=== PATIENT | female | born 1990 | race Caucasian/White ===

== ENCOUNTER 2018-04-20 09:35 | Emergency (ER) | payer OTHER, SELFPAY ==
[2018-04-20 09:36] VITALS: BP 134/76; PULSE 89; RESP 16; TEMP 36.2; O2SAT 100; BMI 23.8
--- NOTE | 2018-04-20 09:55 | ED.DCSUM_ITS ---
- ER Visit Summary Date of Service: 04/20/18 Chief Complaint: [] Abdominal cramps for a few weeks History of Present Illness: The patient is a 28 F [] she reports for the last few weeks she has had intermittent paroxysmal abdominal cramps, now she seems to feel that anytime she eats anything of any kind including soft foods or greasy foods etc. she has diffuse abdominal cramps she has had no vomiting no diarrhea normal bowel habits also complains sometimes she feels the cramps more in her back. She has no past history is on no medications she has had no exposures no one at home or work or sick she presents because of the persistent nature of the cramps Physical Examination: [] She is resting comfortably in the bed she is a very thin fit appearing individual her vital signs are within normal range head neck chest unremarkable the abdomen is soft there is no rebound guarding organomegaly or tenderness there is no cramping now the back is unremarkable upper lower extremity skin exam are normal Test Results: [] Emergency Department Course and Treatment: [] Differential is rather extensive she has really no physical findings is been going on for weeks screening labs Patient screening labs are generally unremarkable, the acute abdominal series shows moderate amount of stool nothing else that appears acute, I do not believe she requires CT imaging given her history and physical exam Expand all the above to her stands that she require further outpatient management she understands at the degree of constipation seen on the films may or may not be contributing to her symptoms as a precaution she will start taking MiraLAX high-fiber food and she will follow-up with her doctors for further management and return for change in symptoms Treatment Plan: [] Disposition: [] Home stable Impression: [] Intermittent crampy abdominal pain etiology unclear This note was generated with [employer] dictation software. It may contain incorrect words, spelling, and punctuation that were not noted in review of the chart prior to signing ED Disposition - Plan for ED Patient: Chief Complaint: Nausea/Vomiting Referrals: Care Physician,No Primary [Primary Care Provider] -
[2018-04-20 10:19] LABS: Mucous, Urine 0 SEEN /hpf (<or=2+)
[2018-04-20] MEDS: 0.9% Normal Saline 1,000 ML 125 ML IV (10:19)
[2018-04-20 10:21] LABS: Color, Urine Yellow (Yellow); Glucose, Dipstick Normal (Normal); Ketone-Dipstick Negative (Negative); Leukocyte Esterase-Dipstick 100 /ul (Negative); Nitrite-Dipstick Negative (Negative); Occult Blood-Urine 10 /ul (Negative); Protein-Dipstick Negative (Negative); Urine Bilirubin Dipstick Negative (Negative); Urine Clarity Clear (Clear); Urine Urobilinogen 1 mg/dl (Normal)
[2018-04-20 10:23] LABS: Absolute Lymphocyte Count 1.48 X10^3/ul (0.83-4.51); Absolute Neutrophil Count 5.1 X10^3/uL (2.0-7.7); Basophil# 0.01 X10^3/uL; Basophil% 0.1 % (0-1); Eosinophil# 0.06 X10^3/uL; Eosinophils% 0.8 % (0-5); Hematocrit 40.2 % (37-47); Hemoglobin 13.1 g/dl (12.0-15.0); Lymphocyte # 1.48 X10^3/ul (4.0); Lymphocyte % 20.7 % (19-41); Mean Corp Hgb Conc 32.6 g/gl (32-36); Mean Corpuscular Hgb 27.2 pg (27.0-32.0); Mean Corpuscular Volume 83.4 fL (81-99); Mean Platelet Vol. 9.9 fl (6.2-12.0); Monocyte# 0.52 X10^3/uL; Monocyte% 7.3 % (0-10); Neutrophil # 5.07 X10^3/uL (2.7-7.7); Platelet Count 232 K/mm3 (150-450); RBC Distribution Width CV 13.6 % (11.6-14.6); RBC Distribution Width SD 41.5 fl (35.1-43.9); Red Blood Count 4.82 M/mm3 (4.2-5.4); White Blood Count 7.2 K/mm3 (4.4-11.0)
[2018-04-20 10:24] LABS: POSITIVE COUNT NO; POSITIVE DIFFERENTIAL NO; POSITIVE MORPHOLOGY NO
--- NOTE | 2018-04-20 10:25 | RAD_ITS ---
STUDY: X-RAY - ACUTE ABDOMINAL SERIES REASON FOR EXAM: Female, 28 years old. Nausea and vomiting with cramping. TECHNIQUE: Single view of the chest. Supine, and erect view(s) of the abdomen were obtained. COMPARISON: None. FINDINGS: The lungs are clear and expanded. Normal size heart. Normal mediastinum and micheal. Normal visualized pulmonary arteries. Normal visualized aortic arch and descending thoracic aorta. There is a moderate amount of colonic fecal material. There are nonspecific gaseous bowel loops. There is no evidence of free air. The soft tissue structures of the abdomen and pelvis are unremarkable. There is an S-shaped scoliosis of the thoracolumbar spine. There is an IUD in the pelvic region. Multiple pelvic calcifications are seen likely due to phleboliths. RAD/Acute Abdomen Inc Chest IMPRESSION: Nonspecific gas pattern. Fecal retention. No active pulmonary disease. Scoliosis. Electronically Signed: Josue Oh MD at 11:19 EDT Tel , Service support ,
[2018-04-20 10:27] LABS: Bacteria RARE /hpf (None Seen); Red Blood Cells-Urine 0-5 SEEN /hpf (0-5); Squamous Epithelial Cells - UA 0-5 SEEN /hpf (5-10); White Blood Cells 0-5 SEEN /hpf (0-5)
[2018-04-20 10:38] LABS: AST(SGOT) 11 U/L (15-37); Alanine Aminotransfer ALT/SGPT 18 U/L (13-56); Albumin, Serum 3.9 g/dL (3.2-5.0); Alkaline Phosphatase 74 U/L (45-117); Anion Gap 9 (5-15); BUN 12 mg/dL (7-18); BUN/Creat Ratio 14.8 RATIO (10-20); Bilirubin, Direct 0.17 mg/dL (0.00-0.30); Calcium,Total 8.3 mg/dL (8.5-10.1); Chloride 107 mmol/L (98-107); Creatinine, Serum 0.81 mg/dL (0.55-1.02); EST Glomerular Filtration Rate 90 mL/min (>60); Est Glom Filt Rate - Afr Amer 109 mL/min (>60); Estimated Creatinine Clearance 93.88 ml/min; Globulin 3.1 g/dL (2.2-4.2); Glucose 99 mg/dL (74-106); Lipase 99 U/L (73-393); Potassium 3.9 mmol/L (3.5-5.1); Sodium Level 141 mmol/L (136-145)
[2018-04-20 10:40] LABS: Pregnancy, Serum, hCG Quali. NEGATIVE Negative (0-9 Nonpreg)
--- NOTE | 2018-04-20 11:06 | ED.DEP ---
ED Disposition - Plan for ED Patient: Chief Complaint: Nausea/Vomiting Instructions: ED Abdominal Pain Unkn Cause Referrals: Care Physician,No Primary [Primary Care Provider] - Additional Instructions: Please stay on a bland diet, take MiraLAX 2 or 3 times a day and make sure you follow-up with your family doctor
[2018-04-20 12:26] VITALS: BP 126/84; PULSE 85; RESP 16; O2SAT 100
== END 2018-04-20 12:27 | disposition home or self-care (01) ==
PROVIDERS: Emergency Provider Emergency Medicine
DX: R10.9 Unspecified abdominal pain (principal)
CPT/HCPCS: 74022; 80048; 80076; 81001; 83690; 84703; 85025; 96360; 96361; 99283; J7030

== ENCOUNTER → 2020-12-12 | Outpatient (CLI) | payer OTHER, SELFPAY ==
[2020-12-12 10:09] VITALS: BMI 26.6
[2020-12-13 20:07] LABS: Chlamydia By Nucleic Acid AMP Negative (Negative)
[2020-12-14 12:31] LABS: Gonococcus By Nucleic Acid AMP Negative (Negative)
[2020-12-14 12:51] LABS: HPV Reflexed? NOT INDICATED
== END | disposition home or self-care (01) ==
LOC: LABSPEC 12:37
PROVIDERS: Referring Provider Nurse Practitioner Women's Health; Visit Provider Nurse Practitioner Women's Health
DX: Z12.4 Encounter for screening for malignant neoplasm of cervix (principal); Z11.3 Encounter for screening for infections with a predominantly sexual mode of transmission
CPT/HCPCS: 87491; 87591; 88175; G0145

== ENCOUNTER → 2023-09-11 | Outpatient (CLI) | payer OTHER, SELFPAY ==
[2023-09-11 10:20] LABS: Vitamin D,25 Hydroxy 30.7 ng/mL
[2023-09-11 10:45] LABS: NATERA MAILED SPECIMEN
[2023-09-13 12:08] LABS: HPV APTIMA, High Risk Negative (Negative)
== END | disposition home or self-care (01) ==
PROVIDERS: Referring Provider Nurse Practitioner Women's Health; Visit Provider Nurse Practitioner Women's Health
DX: Z12.4 Encounter for screening for malignant neoplasm of cervix (principal); Z80.3 Family history of malignant neoplasm of breast; Z13.29 Encounter for screening for other suspected endocrine disorder; Z13.21 Encounter for screening for nutritional disorder
CPT/HCPCS: 36415; 82306; 84443; 87624; 88175; G0145

== ENCOUNTER → 2023-09-13 | Outpatient (CLI) | payer OTHER, SELFPAY ==
--- NOTE | 2023-09-13 10:11 | BI_ITS ---
MAMMOGRAPHY - BILATERAL SCREENING 3-D TOMOSYNTHESIS REASON FOR EXAM: Female, 33 years old. Baseline screening mammogram. PERTINENT HISTORY: Mother with breast cancer in fifth decade. 2 paternal aunts with breast cancer in sixth and seventh decades.. TECHNIQUE: 2-D mammograms and 3-D Tomosynthesis of the breast (s) were performed. CAD was performed. COMPARISON: None. Baseline examination. FINDINGS: The breast composition is heterogeneously dense that can obscure small breast masses. No dominant masses, suspicious microcalcifications, asymmetries, skin thickening or nipple retraction. BI/SCRN MAMM (CAD)W/MARIA C BILAT IMPRESSION: No mammographic signs of malignancy. Routine yearly mammograms recommended. ASSESSMENT CATEGORY: BIRADS Category 1: Negative. A letter regarding these results will be sent to the patient by the facility within 30 days. FOLLOW UP RECOMMENDATION: Yearly follow up mammogram recommended. (A) Approximately 10% of breast cancers are not detected by mammography. A normal mammogram should not delay biopsy of a clinically suspicious abnormality. Electronically Signed: Caden Guillaume MD at 15:19 EST ,
--- OUTSIDE RECORDS SUMMARY | 2023-09-13 10:42 | XMS RPT_ITS | CCD ---
Author Name Unknown Address [address] [place] [address] Organization [facility] Care Team Providers Care Heavy Mobile Equipment Operator Name Role Phone KATIA MEJIAS Attending Un available NO, PHYSICIAN Primary Care Unavailable Results Test Name Value Interpretation Reference Range Facil ity Encounters Encounter Date Encounter Type Care Provider Facility Start: 04-13-2021 End: 04-13-2021 Emergency department patient visit KATIA PACO [facility] Payers Date Payer Category Payer Worker's Compensation [id number] 1991 Unknown [id number] Progress note 09-25-2021 Note Date & Type Note Facility 09-25-2021 Note HNO ID: [id number] Author: Dayron Benites MD Service: ? Author Type: Physician Type: Progress Notes Filed: 09/25/2021 6:56 PM Note Text: Patient presents with: Establish Care Follow Up: started paxil with Mckenna HPI: Patient presents today for office visit for follow up. Saw Mckenna recently and had meds added for depression. Overall is feeling much better. Still could use a little bit of improvement. No side effects. Sleeping well. Stress is unchanged. Pleased with results. See Mckenna notes from last month. Mood: Was taking prozac for depression in the past, stopped taking it over a year ago. Refers that she had increased stress and anxiety. Feels anxious and tense. Worrying about things. Increased sadness, hard to get out of bed. Denies any thoughts of suicidal ideation Component Latest Ref Rng AND Units 08/16/2021 WBC 3.70 - 11.00 k/uL 5.90 RBC 3.90 - 5.20 m/uL 4.68 Hemoglobin 11.5 - 15.5 g/dL 13.0 Hematocrit 36.0 - 46.0 % 40.5 MCV 80.0 - 100.0 fL 86.5 MCH 26.0 - 34.0 pG 27.8 MCHC 30.5 - 36.0 g/dL 32.1 RDW-CV 11.5 - 15.0 % 12.6 Platelet Count 150 - 400 k/uL 267 MPV 9.0 - 12.7 fL 10.2 Neut% % 59.2 Abs Neut (ANC) 1.45 - 7.50 k/uL 3.49 Lymph% % 27.3 Abs Lymph 1.00 - 4.00 k/uL 1.61 [place]% % 9.3 Abs [place] <0.87 k/uL 0.55 Eosin% % 3.7 Abs Eosin <0.46 k/uL 0.22 Baso% % 0.5 Abs Baso <0.11 k/uL 0.03 Nucleated Reds 0 /100 WBC 0.0 Absolute nRBC <0.01 k/uL <0.01 Diff Type Auto Diff Protein, Total 6.3 - 8.0 g/dL 6.9 Albumin 3.9 - 4.9 g/dL 4.5 Calcium 8.5 - 10.2 mg/dL 9.2 Bilirubin, Total 0.2 - 1.3 mg/dL 0.9 Alkaline Phosphatase 34 - 123 U/L 48 AST 13 - 35 U/L 13 Glucose 74 - 99 mg/dL 83 BUN 7 - 21 mg/dL 10 Creatinine 0.58 - 0.96 mg/dL 0.79 Sodium 136 - 144 mmol/L 139 Potassium 3.7 - 5.1 mmol/L 4.1 Chloride 97 - 105 mmol/L 105 CO2 22 - 30 mmol/L 21 (L) Anion Gap 9 - 18 mmol/L 13 ALT 7 - 38 U/L 10 eGFR- >60 eGFR-All Other Races . >60 Cholesterol, Total <200 mg/dL 185 Triglyceride <150 mg/dL 57 HDL Cholesterol >39 mg/dL 66 LDL Cholesterol <100 mg/dL 108 (H) Non HDL Cholesterol <130 mg/dL 119 Fasting Time hrs 12 VLDL Cholesterol <30 mg/dL 11 TC:HDL Ratio <5.10 2.80 LDL:HDL Ratio <2.54 1.64 Hemoglobin A1C 4.3 - 5.6 % 5.3 Estimated Average Glucose mg/dL 105 MEDICATIONS: Current Outpatient Medications Medication Sig - PARoxetine (PAXIL) 10 mg tablet Take 1 tablet by mouth once daily. - levonorgestrel (MIRENA) 20 mcg/24 hr (5 years) IUD Inserted in office No current facility-administered medications for this visit. ALLERGIES: ALLERGIES No Known Allergies PAST MEDICAL HISTORY Diagnosis Date - Anemia with - fracture 5th metatarsal - NEGATIVE MEDICAL HISTORY PAST SURGICAL HISTORY Procedure Laterality Date - INSERT INTRAUTERINE DEVICE 01/11/2017 - PAST SURGICAL HISTORY OF wisdom teeth FAMILY HISTORY Problem Relation Age of Onset - Breast Cancer Mother dx age 43, negative genetic testing - Diabetes Paternal Grandmother - Heart Paternal Grandfather [place] - Alcohol/Drug Maternal Uncle ETOH Social History Tobacco Use - Smoking status: Never Smoker - Smokeless tobacco: Never Used Substance Use Topics - Alcohol use: No - Drug use: No Reviewed current medications, allergies, past medical history, surgical history, family history and social history today. REVIEW OF SYSTEMS All other reviewed and negative other than HPI. VITALS: BP 120/82 Pulse 76 Wt 75.3 kg (166 lb) LMP 08/28/2018 (Approximate) BMI 26.21 kg/m? Last 4 Encounter Wt Readings: Date: Wt: 09/25/2021 75.3 kg (166 lb) 08/16/2021 76.2 kg (168 lb) 05/05/2019 68 kg (150 lb) 01/30/2019 67.1 kg (148 lb) PHYSICAL EXAMINATION: General appearance: Well appearing, alert, in no acute distress, well-hydrated, well nourished. Skin: Skin color, texture, turgor normal, no suspicious rashes or lesions Head: Normocephalic, no masses, lesions, tenderness or abnormalities Lungs: Lungs clear to auscultation. No wheezing, rhonchi, rales Heart: RRR without murmur, gallop, or rubs. No ectopy Abdomen: Normal abdominal exam, Abdomen soft, non-tender. Bowel sounds normal. No masses, organomegaly Extremities: No deformities, edema, skin discoloration, clubbing or cyanosis. Good capillary refill. PSYCH:Affect normal. Normal speech. Normal eye contact ASSESSMENT/PLAN: 1. Anxiety with depression - ICD9: 300.4, ICD10: F41.8 - increase paxil to 20 mg a day. Call with update in four to six weeks. Red flags for re-assessment reviewed with patient in detail. - PAROXETINE 20 MG TABLET Dayron Benites RTO in six months and prn. [facility] Progress note 08-16-2021 Note Date & Type Note Facility 08-16-2021 Note HNO ID: [id number] Author: Mckenna Gamboa APRN.FARE COLLECTOR Service: ? Author Type: Nurse Practitioner Type: Progress Notes Filed: 08/16/2021 7:27 AM Note Text: This is a 31 year old female who presents today with: Patient presents with: Physical HISTORY OF PRESENT ILLNESS: Pascual Trevino is a 31 year old female. Patient presents with: Physical Here in the office for wellness exam. Diet: eating a well balanced diet. Exercise: active job, works outside. Vision: Due for exam, no difficulties. Dental: had exam. Sleep: 8 hours. Mood: Was taking prozac for depression in the past, stopped taking it over a year ago. Refers that she had increased stress and anxiety. Feels anxious and tense. Worrying about things. Increased sadness, hard to get out of bed. Denies any thoughts of suicidal ideation. Pap: February 2020, Normal Vaccines: up to date on vaccines. Breast Cancer: Mother and aunts on father side history of breast cancer. PAST MEDICAL HISTORY: PAST MEDICAL HISTORY Diagnosis Date - Anemia with - fracture 5th metatarsal - NEGATIVE MEDICAL HISTORY PAST SURGICAL HISTORY Procedure Laterality Date - INSERT INTRAUTERINE DEVICE 01/11/2017 - PAST SURGICAL HISTORY OF wisdom teeth ALLERGIES Patient has no known allergies. MEDICATIONS Current Outpatient Medications Medication Sig - FLUoxetine (PROZAC) 20 mg capsule Take 1 capsule by mouth once daily. - levonorgestrel (MIRENA) 20 mcg/24 hr (5 years) IUD Inserted in office No current facility-administered medications for this visit. FAMILY HISTORY Problem Relation Age of Onset - Breast Cancer Mother dx age 43, negative genetic testing - Diabetes Paternal Grandmother - Heart Paternal Grandfather [place] - Alcohol/Drug Maternal Uncle ETOH Social History Tobacco Use - Smoking status: Never Smoker - Smokeless tobacco: Never Used Substance Use Topics - Alcohol use: No - Drug use: No REVIEW OF SYSTEMS GENERAL: No weight loss, malaise or fevers/chills HEENT: Negative for frequent or significant headaches, No changes in hearing or vision. NECK: Negative for lumps, goiter, pain and significant neck swelling RESPIRATORY: Negative for cough, hemoptysis, wheezing, dyspnea or shortness of breath CARDIOVASCULAR: Negative for chest pain, leg swelling, orthopnea, or palpitations GI: No nausea, vomiting, or diarrhea/constipation. No hematochezia/melena. No heartburn or reflux symptoms. : No history of dysuria, frequency or incontinence MUSCULOSKELETAL: Negative for joint pain or swelling. SKIN: Negative for lesions, rash, and itching ENDOCRINE: Negative for cold or heat intolerance, polyuria, polydipsia and goiter NEURO: No history of headaches, syncope, paralysis, seizures or tremors MOOD: Sadness/anxiety EXAM: BP 112/76 Pulse 90 Resp 16 Ht 169.5 cm (5' 6.73 ) Wt 76.2 kg (168 lb) LMP 08/28/2018 (Approximate) SpO2 100% BMI 26.52 kg/m? PHYSICAL EXAM: General Appearance: Well appearing, alert, in no acute distress, well-hydrated, well nourished. Skin: Skin color, texture, turgor normal, no suspicious rashes or lesions. Head: Normocephalic, no masses, lesions, tenderness or abnormalities. Eyes: Anicteric sclera. Pupils are equally round and reactive to light. Extraocular movements are intact. Ears: External ears normal, canals clear. TM's pearly goel. Neck: Supple, no adenopathy; thyroid symmetric, normal size, no bruits. Lungs: Lungs clear to auscultation. No wheezing, rhonchi, rales.. Heart: RRR without murmur, gallop, or rubs. No ectopy. Abdomen: Normal abdominal exam, Abdomen soft, non-tender. Bowel sounds normal. No masses, organomegaly, Negative CVA tenderness. Extremities: No deformities, edema, skin discoloration, clubbing or cyanosis. Good capillary refill. . Musculoskeletal: No joint swelling, deformity, or tenderness. Peripheral Pulses: Normal, Capillary refill <2secs, strong peripheral pulses, Pulses palpable. Neurologic: Gait normal. Reflexes normal and symmetric. Sensation grossly intact.. Mood: Pleasant, good eye contact, engaged. ASSESSMENT/PLAN: 1. Wellness examination - ICD9: V70.0, ICD10: Z00.00 (primary diagnosis) - Counseled on healthy diet and regular exercise - Calcium intake with supplements or by diet of 1000 mg/day for under 50, 5984-3747 mg/day for 50+ - Mammogram ordered - exam recommended once yearly - Depression screening tool completed and reviewed with patient. Based on score and interview, patient is at risk for depression and recommended starting medication. - Follow up for annual exam in one year - CBC + DIFF - CMP (CMP) (FOR REMOTE COUNTS INCLUDE 234 BEDS AT THE [facility] USE) 2. Anxiety with depression - ICD9: 300.4, ICD10: F41.8 - Start Paxil daily. - Medication instructions and education discussed. - PAROXETINE 10 MG TABLET 3. Family history of breast cancer in first degree relative - ICD9: V16.3, ICD10: Z80.3 - Based off family history will get (more content not included)... [facility] Summary Purpose Family History No Family History Records FoundNo Family History Records Found Advance Directives No Advanced Directives Records FoundNo Advanced Directives Records Found Additional Source Comments INFORMATION SOURCE (unrecogn ized section and content) DATE CREATED AUTHOR AUTHOR'S ORGANIZ ATION 10/11/2021 [facility] FOR RECORDS PERTAINING TO PATIENTS WHO ARE OR HAVE BEEN ENROLLED IN A CHEMICAL DEPENDENCY/SUBSTANCEABUSE PROGRAM, SOME INFORMATION MAY BE OMITTED. This clinical summary was aggregated from multiple sources. Caution should be exercised in using it in the provision of clinical care. This summary normalizes information from multiple sources, and as a consequence, information in this document may materially change the coding, format and clinical context of patient data. In addition, data may be omitted in some cases. CLINICAL DECISIONS SHOULD BE BASED ON THE PRIMARY CLINICAL RECORDS. [employer] provides no warranty or guarantee of the accuracy or completeness of information in this document.
== END | disposition home or self-care (01) ==
LOC: OPBI 10:10
PROVIDERS: PCP Family Medicine; Referring Provider Nurse Practitioner Women's Health; Visit Provider Nurse Practitioner Women's Health
DX: Z12.31 Encounter for screening mammogram for malignant neoplasm of breast (principal); Z80.3 Family history of malignant neoplasm of breast
CPT/HCPCS: 77063; 77067

== ENCOUNTER → 2024-09-28 | Outpatient (CLI) | payer OTHER, SELFPAY ==
--- NOTE | 2024-09-28 14:27 | BI_ITS ---
MAMMOGRAPHY - BILATERAL SCREENING REASON FOR EXAM: Female, 34 years old. Routine annual screening examination. PERTINENT HISTORY: Mother with breast cancer. Aunts with breast cancer. TECHNIQUE: Digital bilateral breast maria c (3D mammographic acquisition) in the CC and MLO projections. 2-D mediolateral oblique (MLO) and craniocaudad (CC) views of both breasts were obtained. CAD: Full Field Digital Mammography with Computer Added Detection was performed. COMPARISON: Comparison is made with prior study dated September 13, 2023. FINDINGS: Breast Composition: The breasts are extremely dense, which lowers the sensitivity of mammography. There are no dominant masses or suspicious calcifications. Stable 4.5 mm x 6.9 mm well-defined nodule in the anterior left axillary region suggestive of a small lymph node. No other significant abnormalities are identified. There has been no significant change since the prior study. BI/SCRN MAMM (CAD)W/MARIA C BILAT IMPRESSION: Stable bilateral screening mammogram. Yearly follow-up mammogram recommended. (A) ASSESSMENT CATEGORY: BIRADS Category 2: Benign. A letter regarding these results will be sent to the patient by the facility within 30 days. Approximately 10% of breast cancers are not detected by mammography. A normal mammogram should not delay biopsy of a clinically suspicious abnormality. [id number] Electronically Signed: Bart Sosa MD at 15:12 EST ,
== END | disposition home or self-care (01) ==
PROVIDERS: PCP Family Medicine; Referring Provider Nurse Practitioner Women's Health; Visit Provider Nurse Practitioner Women's Health
DX: Z12.31 Encounter for screening mammogram for malignant neoplasm of breast (principal); Z80.3 Family history of malignant neoplasm of breast

== ENCOUNTER → 2025-01-29 | Outpatient (CLI) | payer OTHER, SELFPAY ==
--- NOTE | 2025-01-29 10:02 | US_ITS ---
PROCEDURE: BREAST LIMITED UNILATERAL 01/29/2025 REASON FOR EXAM: 34-year-old female presents with left breast pain. TECHNIQUE: Targeted left breast ultrasound. COMPARISON: Mammogram 09/28/2024, 09/13/2023 FINDINGS: Left breast ultrasound was targeted to the lower outer quadrant. The breast tissue appears sonographically normal. No cyst, solid mass, or suspicious shadowing. US/Breast Limited Unilateral IMPRESSION: Impression: There are no suspicious findings in the area of patient's reported pain in the left breast. Clinical management is recommended for the pain. Birads: BI-RADS 1: NEGATIVE. RECOMMEND ANNUAL MAMMOGRAPHIC SCREENING. Reading Location: [id number]
== END | disposition home or self-care (01) ==
LOC: OPBI 10:00
PROVIDERS: PCP Nurse Practitioner Family; Referring Provider Advanced Practice Midwife; Visit Provider Advanced Practice Midwife
DX: N64.4 Mastodynia (principal); Z80.3 Family history of malignant neoplasm of breast
CPT/HCPCS: 76642